=== PATIENT | female | born 1980 | race Caucasian/White ===

== ENCOUNTER 2017-11-23 10:17 | Outpatient (REF) | payer MEDICAID, SELFPAY ==
--- NOTE | 2017-11-23 09:00 | PAPFT_PTH ---
PATIENT: Lindy Haque LOC: [facility] U#:[id number] AGE/SX: 37/F ROOM: RE11/23/[address]: REBECA Abreu : 1980 BED: DIS: 11/23/2017 SPEC #: [id number] RECD: 11/23/17 13:08 STATUS: DONALDO REEla #: [id number] XUAN: 11/23/17 09:[address]: Madisyn García DEPT: [facility] Cytology RECD BY: Claudia Smith ENTERED: 11/23/17 13:08 SP TYPE: PAPFT LAVERNE DR: Joelle Allen APRN Tissues: 1 - CX/ENDOCX FOR PAP SMEARS Procedures: PAP THIN PREP/[facility] Screening HPV DNA PROBE Comments: [id number]
== END 2017-11-23 10:37 ==
LOC: LBN 10:17
PROVIDERS: PCP Nurse Practitioner Family; Visit Provider Nurse Practitioner Family
DX: Z12.4 Encounter for screening for malignant neoplasm of cervix (principal); Z11.51 Encounter for screening for human papillomavirus (HPV)
CPT/HCPCS: 88142; 87624

== ENCOUNTER 2017-12-20 16:52 | Outpatient (REF) | payer MEDICAID, SELFPAY ==
[2017-12-24 15:21] LABS: Chlamydia Result Negative; GC Result Negative
== END 2017-12-20 17:12 ==
LOC: LBN 16:52
PROVIDERS: PCP Nurse Practitioner Family; Visit Provider Nurse Practitioner Family
DX: Z11.3 Encounter for screening for infections with a predominantly sexual mode of transmission (principal)
CPT/HCPCS: 87491; 87591

== ENCOUNTER 2022-04-19 18:45 | Outpatient (REF) | payer MEDICAID, SELFPAY ==
--- NOTE | 2022-04-19 18:50 | PAPFT_PTH ---
PATIENT: Lindy Haque LOC: [facility] U#:[id number] AGE/SX: 41/F ROOM: RE04/19/[address]: Jany Lemon APRN : 1980 BED: DIS: 04/19/2022 SPEC #: [id number] RECD: 04/20/22 12:58 STATUS: DONALDO REEla #: [id number] XUAN: 04/19/22 18:[address]: Jany Lemon DEPT: [facility] Cytology RECD BY: Claudia Smith Tissues: 1 - CX/ENDOCX FOR PAP SMEARS Procedures: PAP THIN PREP/[facility] Screening HPV DNA PROBE Comments: [id number]
[2022-04-21 15:02] LABS: Chlamydia Result Negative (Negative); GC Result Negative (Negative)
== END 2022-04-19 18:46 | disposition home or self-care (01) ==
LOC: LBN 18:45
PROVIDERS: PCP Nurse Practitioner Adult Health; Referring Provider Nurse Practitioner Adult Health; Visit Provider Nurse Practitioner Adult Health
DX: Z11.3 Encounter for screening for infections with a predominantly sexual mode of transmission (principal); N89.8 Other specified noninflammatory disorders of vagina
CPT/HCPCS: 87491; 87591; 88142; 87480; 87510; 87624; 87660

== ENCOUNTER 2023-05-30 18:29 | Outpatient (REF) | payer MEDICAID, SELFPAY ==
--- NOTE | 2023-05-30 18:15 | PAPFT_PTH ---
PATIENT: Lindy Haque LOC: [facility] U#:[id number] AGE/SX: 42/F ROOM: RE05/30/[address]: Jany Lemon APRN : 1980 BED: DIS: 05/30/2023 SPEC #: [id number] RECD: 05/31/23 12:48 STATUS: DONALDO KINNEY #: [id number] XUAN: 05/30/23 18:[address]: Jany Lemon DEPT: [facility] Cytology RECD BY: Claudia Smith Tissues: 1 - CX/ENDOCX FOR PAP SMEARS Procedures: PAP THIN PREP/[facility] Screening HPV DNA PROBE Comments: [id number]
[2023-06-01 14:41] LABS: Chlamydia Result Negative (Negative); GC Result Negative (Negative)
== END 2023-05-30 18:30 | disposition home or self-care (01) ==
LOC: LBN 18:29
PROVIDERS: PCP Nurse Practitioner Adult Health; Visit Provider Nurse Practitioner Adult Health
DX: Z11.3 Encounter for screening for infections with a predominantly sexual mode of transmission (principal)
CPT/HCPCS: 87491; 87591; 88142; 87480; 87510; 87624; 87660

== ENCOUNTER → 2023-06-13 03:46 | Outpatient (CLI) | payer MEDICAID, SELFPAY ==
--- NOTE | 2023-06-13 08:15 | DI.MAMMO_ITS ---
Exam(s) MAMMO SCREENING EXAM: MAMMO SCREENING CLINICAL HISTORY: screening,z12.39 TECHNIQUE: Mammograms were interpreted according to the usual protocol including computer analysis w [employer] CAD system, tomosynthesis and C-view imaging. COMPARISON: No exams were available for comparison. Baseline examination. FINDINGS: The breasts are composed of scattered fibroglandular densities, Breast Density category B. No suspicious masses or suspicious microcalcifications are seen. No skin thickening or abnormal axillary lymph nodes are seen. IMPRESSION: BI-RADS Category 1, Negative mammogram Yearly screening mammography is recommended. Breast Density - Category B, scattered fibroglandular densities. A negative radiographic report should not delay biopsy if a dominant or clinically suspicious mass is present. Up to ten percent of cancers are not identified on mammography. A negative report may reinforce clinical impression. Adenosis and dense breasts may obscure an underlying neoplasm. False positive reports average 6 to 10%. Patient will receive a letter notifying them of these results.
== END ==
PROVIDERS: PCP Nurse Practitioner Adult Health; Visit Provider Nurse Practitioner Adult Health
DX: Z12.31 Encounter for screening mammogram for malignant neoplasm of breast (principal); R92.323 Mammographic fibroglandular density, bilateral breasts
CPT/HCPCS: 77063; 77067

== ENCOUNTER 2024-07-28 04:29 | Outpatient (CLI) | payer MEDICAID, SELFPAY ==
[2024-07-28] MEDS: Methacholine 100 MG VIAL IH (12:05)
[2024-07-28] MEDS: Albuterol HFA 18 GM 200 PUFF INH IH (12:05)
[2024-07-28] MEDS: Inhaler, Assist Device 1 EACH MC (12:05)
--- NOTE | 2024-08-17 09:27 | W.PFT ---
Date of service: 07/28/24 Time of Service: 10:04 Pulmonary Function Test Result Indications: Asthma Interpretation Spirometry: No airflow limitation at baseline. There was a 27% decrease in in FEV1 with administration of 16mg/mL methacholine. Impression No airflow obstruction at baseline and a borderline methacholine challenge. Clinical Correlation therefore is recommended.
== END 2024-07-28 04:30 | disposition home or self-care (01) ==
PROVIDERS: PCP Nurse Practitioner Adult Health; Visit Provider Student in an Organized Health Care Education/Training Program
DX: J45.909 Unspecified asthma, uncomplicated (principal); R09.82 Postnasal drip; J30.89 Other allergic rhinitis
CPT/HCPCS: 94070; 95070; J7674